=== PATIENT | female | born 1975 | race Caucasian/White ===

== ENCOUNTER 2020-08-28 21:22 | Inpatient (IN) | payer MEDICAID ==
[~2020-08-28] VITALS: Ht 190.5 cm; Wt 105.5 kg
[~2020-08-28 21:22] MED LIST: temazepam 15mg capsule PO PRN
[2020-08-28] MEDS ORDERED: heparin 10,000 units/1 ML INJ IV PRN (22:25)
[2020-08-28] MEDS ORDERED: heparin 25,000 UNIT/250ml bag 250 ML IV SCH (22:25)
[2020-08-28] MEDS ORDERED: heparin 10,000 units/1 ML INJ IV ONE ×2 (22:25)
[2020-08-28] MEDS ORDERED: IBUP-24 PO (22:28)
[2020-08-28] MEDS ORDERED: ALBU8HFA PO (22:28)
[2020-08-28] MEDS ORDERED: ondansetron/PF 4mg/2ml inj IV PRN (23:00)
[2020-08-28] MEDS ORDERED: HYDROcodone/acetaminophen 5mg/325mg tablet PO PRN (23:00)
[2020-08-28] MEDS ORDERED: acetaminophen 325mg tablet PO PRN ×2 (23:00)
[2020-08-28] MEDS ORDERED: LORazepam 2 mg/ml vial IV PRN (23:00)
[2020-08-28] MEDS ORDERED: magnesium Cl slow-release 64mg tablet PO PRN (23:00)
[2020-08-28] MEDS ORDERED: magnesium 4gm in 100ml NS 100 ML IV PRN (23:00)
[2020-08-28] MEDS ORDERED: magnesium 2GM in 50ml NS 50 ML IV PRN (23:00)
[2020-08-28] MEDS ORDERED: potassium Cl 20 mEq SR tablet PO PRN ×2 (23:00)
[2020-08-28] MEDS ORDERED: potassium Cl 40MEQ/1/2NS 520ml 520 ML IV PRN ×2 (23:00)
[2020-08-28] MEDS ORDERED: morphine 2 MG/ML inj. syringe IV PRN (23:00)
[2020-08-28] MEDS ORDERED: thiamine 100mg/ml 2ml inj. IV ONE (23:00)
[2020-08-28] MEDS ORDERED: LORazepam 1 MG tablet PO PRN (23:00)
[2020-08-28] MEDS ORDERED: regadenoson 0.4mg/5ml syringe IV ONE (23:10)
[2020-08-28] MEDS ORDERED: aminophylline 250mg/10ml inj. IV PRN (23:10)
[2020-08-28] MEDS ORDERED: metoprolol tartrate 1mg/ml inj IV PRN (23:10)
[2020-08-28] MEDS ORDERED: nitroGLYCERIN 0.4mg SUBLingual tab SL PRN (23:10)
[2020-08-28] MEDS ORDERED: iohexol 350MG/ML 100ml bottle IV ONE (23:19)
[2020-08-29] VITALS (14 sets, daily range): BP systolic 124–142; BP diastolic 64–93
--- NOTE | 2020-08-29 00:07 | NUR ---
Confirmed with Dr. Marquez that she desires only SQ Heparin at [address] Marquez said to discontinue Heparin at this time.
--- NOTE | 2020-08-29 01:07 | NUR ---
Patient in room ED 7. I have received report from LAY Easton and had the opportunity to ask questions and assume patient care.
[2020-08-29] MEDS ORDERED: regadenoson 0.4mg/5ml syringe IV PRN (02:20)
--- NOTE | 2020-08-29 06:16 | NUR ---
Problems reprioritized. Patient report given, questions answered & plan of care reviewed with LAY Marquez.
[2020-08-29 06:54] LABS: BASOPHILS # (AUTO) 0.1 X10'3 (0-0.2); BASOPHILS % (AUTO) 1.2 % (0-1); EOSINOPHILS # (AUTO) 0.3 X10'3 (0-0.9); EOSINOPHILS % (AUTO) 4.8 % (0-6); HEMATOCRIT 41.3 % (35.0-45.0); HEMOGLOBIN 14.1 g/dl (12.0-16.0); LYMPHOCYTES # (AUTO) 1.8 X10'3 (1.1-4.8); LYMPHOCYTES % (AUTO) 31.3 % (21-51); MEAN CORPUSCULAR HEMOGLOBIN 32.3 PG (27.0-31.0); MEAN CORPUSCULAR VOLUME 94.8 FL (78-98); MEAN PLATELET VOLUME 8.9 FL (7.4-10.4); MONOCYTES # (AUTO) 0.4 X10'3 (0-0.9); MONOCYTES % (AUTO) 7.4 % (2-12); NEUTROPHILS # (AUTO) 3.2 X10'3 (1.8-7.7); NEUTROPHILS % (AUTO) 55.3 % (42-75); PLATELET COUNT 185 X10'3 (140-440); RED BLOOD COUNT 4.36 X10'6 (4.20-5.60); RED CELL DISTRIBUTION WIDTH 13.7 % (11.5-14.5); WHITE BLOOD COUNT 5.8 X10'3 (4.5-11.0)
--- NOTE | 2020-08-29 07:03 | NUR ---
Notified Dr. Napier patient in [address] [facility] Troponin @2227 was 0.29 No troponin labs ordered at this time. Patient is scheduled for a lexiscan awaiting orders.
[2020-08-29 07:13] LABS: ALANINE AMINOTRANSFERASE 21 U/L (12-78); ALBUMIN 3.4 G/DL (3.4-5.0); ALBUMIN/GLOBULIN RATIO 1.1 (1.1-1.5); ALKALINE PHOSPHATASE 45 IU/L (46-116); ANION GAP 8 (8-16); ASPARTATE AMINO TRANSFERASE 11 U/L (10-37); BILIRUBIN,TOTAL 0.9 MG/DL (0.1-1.0); BLOOD UREA NITROGEN 14 MG/DL (7-18); BUN/CREATININE RATIO 17.9 (6.6-38.0); CALCIUM 8.7 MG/DL (8.5-10.1); CHLORIDE 105 MMOL/L (99-107); CREATININE 0.78 MG/DL (0.40-0.90); GLUCOSE 101 MG/DL (70-104); MAGNESIUM 1.8 MG/DL (1.5-2.4); POTASSIUM 3.6 MMOL/L (3.5-5.1); SODIUM 139 MMOL/L (135-145); TOTAL CARBON DIOXIDE 26.2 MMOL/L (24-32); TOTAL PROTEIN 6.5 G/DL (6.4-8.2); eGFR 81 ML/MIN
[2020-08-29] MEDS: albuterol 2.5 MG/3 ML nebule NEB SCH ×2 (07:47→15:11)
[2020-08-29] MEDS ORDERED: heparin, porcine 5000 units/ml vial SQ SCH (08:00)
[2020-08-29] MEDS ORDERED: methylPREDNISolone sod succ 125mg/2ml vial IV SCH (08:00)
[2020-08-29] MEDS ORDERED: docusate sod 100mg capsule PO SCH (08:00)
[2020-08-29] MEDS ORDERED: K and/or MAG REPLACEMENT MC SCH (08:00)
[2020-08-29] MEDS ORDERED: nicotine 14mg patch - 24hr TD SCH (08:00)
[2020-08-29] MEDS ORDERED: pantoprazole 40mg Tablet.DR PO SCH (08:00)
[2020-08-29] MEDS ORDERED: CefTRIAXone 2gm/D5W 50ml BAG 50 ML IV SCH (08:00)
--- NOTE | 2020-08-29 10:06 | NUR ---
Patient is complaining of chest pain. Notified Dr Napier of patient complaint. Currently does not have anything ordered for chest pain. States that it feels like a burning sensation when she takes a breath.Awaiting new orders. Update Dr Napier called ordered GI cocktail for patient burning pain. Also informed functional tester typewriters to follow telemetry protocol
--- NOTE | 2020-08-29 11:30 | NUR ---
Patient off unit went to stress lab
[2020-08-29] MEDS ORDERED: AMOX-419 PO (16:30)
[2020-08-29] MEDS ORDERED: lactobacillus rhamnosus 10,000 MMU CELLS/CAPSULE PO SCH (20:00)
--- NOTE | 2020-08-30 11:17 | NUR ---
CASE MANAGEMENT DISCHARGE FOLLOW UP: Spoke with pt via telephone. Reports that she still has intermittent tightness in chest not improved with albuterol treatment, otherwise okay; denies outright CP, SOB/dyspnea, fever. Verbalizes understanding of s/sx requiring further evaluation/emergent assistance. Verbalizes understanding of new and current medications, states will berry picker antibiotic today. Verbalizes compliance with MD discharge instructions. Verbalizes understanding of the importance in making/keeping follow-up appointments, states will follow up with PCP regarding ongoing chest tightness. States no further questions/concerns at this time.
== END 2020-08-29 17:45 | disposition home or self-care (01) | DRG 140 ==
LOC: ER 21:23 → ED HOLD 22:56 → PCU 3S 08-29 01:52
PROVIDERS: ADMIT Internal Medicine; ATTEND Internal Medicine
PROC: 4A02XM4 Measurement of Cardiac Total Activity, External Approach (ICD-10-PCS; principal; 2020-08-29)
PROC: 3E073KZ Introduction of Other Diagnostic Substance into Coronary Artery, Percutaneous Approach (ICD-10-PCS; 2020-08-29)
DX: J44.0 Chronic obstructive pulmonary disease with (acute) lower respiratory infection (principal); I21.A1 Myocardial infarction type 2; J20.9 Acute bronchitis, unspecified; F12.90 Cannabis use, unspecified, uncomplicated; J45.909 Unspecified asthma, uncomplicated; F17.210 Nicotine dependence, cigarettes, uncomplicated; Z20.822 Contact with and (suspected) exposure to COVID-19; Z88.2 Allergy status to sulfonamides; Z88.8 Allergy status to other drugs, medicaments and biological substances
CPT/HCPCS: 36415; 71275; 78452; 80053; 83605; 83735; 84484; 85025; 87040; 93005; 93017; 93306; 93308; 94640; 94760; 96365; 96375; 99285; A9500; G0378; J0696; J1644; J2270; J2785; J3411; Q9967